=== PATIENT | female | born 1955 | race Caucasian/White ===

== ENCOUNTER 2017-04-25 18:36 | Observation (INO) | payer BC ==
[~2017-04-25] VITALS: Ht 167.6 cm; Wt 70.6 kg
[2017-04-25] MEDS ORDERED: TAMOXIFEN CITRA20 MG PO (20:36)
[2017-04-25 21:10] VITALS: BP 96/50; PULSE 76; TEMP 99.5
[2017-04-25 22:49] VITALS: BP 119/65; PULSE 66
[2017-04-25 23:04] VITALS: BP 126/70; PULSE 76
[2017-04-25 23:19] VITALS: BP 108/56; PULSE 63
[2017-04-25 23:34] VITALS: BP 103/57; PULSE 66
[2017-04-26 00:04] VITALS: BP 106/48; PULSE 66
[2017-04-26 00:34] VITALS: BP 94/55; PULSE 62
[2017-04-26 01:34] VITALS: BP 103/55; PULSE 64
[2017-04-26 02:34] VITALS: BP 95/52; PULSE 57
[2017-04-26 05:17] VITALS: BP 92/55; PULSE 58; TEMP 98.2
[2017-04-26 09:45] VITALS: BP 101/54; PULSE 72; TEMP 98.5
== END 2017-04-26 12:00 | disposition home or self-care (01) ==
LOC: SURG 18:36
DX: K35.80 Unspecified acute appendicitis (principal); M17.11 Unilateral primary osteoarthritis, right knee; Z96.651 Presence of right artificial knee joint; Z90.11 Acquired absence of right breast and nipple; Z92.21 Personal history of antineoplastic chemotherapy; Z92.3 Personal history of irradiation; Z85.3 Personal history of malignant neoplasm of breast
CPT/HCPCS: G0378; G0379; J0330; J0690; J1100; J1170; J1885; J2405; J2543; J2704; J2765; J3010; J7042; J7120